=== PATIENT | female | born 1995 | race Two or more races ===

== ENCOUNTER → 2020-07-02 | Emergency (ER) | payer OTHER ==
[~2020-07-02] VITALS: Ht 167.6 cm; Wt 131.5 kg
[~2020-07-02] MED LIST: AMOX250; IBU600 MG
== END | disposition left against medical advice (07) ==
LOC: ER 14:02
DX: J02.9 Acute pharyngitis, unspecified (principal); Z03.818 Encounter for observation for suspected exposure to other biological agents ruled out

== ENCOUNTER → 2025-09-07 | Emergency (ER) | payer OTHER ==
[~2025-09-07] VITALS: Ht 170.2 cm; Wt 140.6 kg
[~2025-09-07] MED LIST changes: +ACETAMINOPHEN 500 MG GEL..CAP PO ONE; +CEPHALEXIN500 M1 PO; +RINGERS SOLUTION,LACTATED 1,000 ML IV ONE
[2025-09-07 18:36] VITALS: BP 120/60; O2SAT 98
[2025-09-07 20:03] LABS: BASO % 0.3 % (0.1-1.2); EOS # 0.16 (0.04-0.54); EOS % 1.2 % (0.7-7.0); LYMPH # 3.35 (1.18-3.74); LYMPH % 24.7 % (19.3-53.1); MEAN PLATELET VOLUME 9.90 fl (9.4-12.4); MONO # 0.95 (0.24-0.82); MONO % 7.0 % (4.7-12.5); NEUT # 9.01 (1.56-6.13); NEUT % 66.5 % (34.0-71.1); RED CELL DISTRIBUTION WIDTH 15.6 % (11.6-14.4)
[2025-09-07 20:44] LABS: URINE APPEARANCE Clear; URINE BILIRRUBIN Negative (NEGATIVE); URINE BLOOD Negative; URINE COLOR Dark Yellow; URINE GLUCOSE Negative (NEGATIVE); URINE KETONE Trace (NEGATIVE); URINE LEUKOCYTE Moderate; URINE NITRATE Negative; URINE PROTEIN Trace (NEGATIVE); URINE UROBILINOGEN 1.0 E.U./dl
[2025-09-07 20:44] LABS: ALT/SGPT 36.0 U/L (12-78); AST/SGOT 18.0 U/L (15-37); BILIRUBIN TOTAL 0.52 mg/dL (0.3-1.2); BUN CREA RATIO 11.0 (7.0-25.0); CREATININE SERUM 0.71 mg/dL (0.55-1.02); GFR 96.66; GLOBULINA 4.7 G/DL (2.4-3.5); GLUCOSE FASTING 90.0 mg/dL (65-100); OSMOLALITY SERUM 279.0 MOSM/KG (275-295)
[2025-09-07 20:48] LABS: URINE BACTERIA 1909.2 uL (0.0-1933); URINE EPITHELIAL CELLS 34.0 uL (0.0-38.8); URINE RBC 6.2 uL (0.0-20.8); URINE WBC 579.3 uL (0.0-23.2)
[2025-09-07 20:51] LABS: HCG QUANTITATIVE 1182.0 mUI/mL (1-3)
[2025-09-07 21:00] LABS: URINE CAST 0.56 uL (0.0-1.40)
== END | disposition home or self-care (01) ==
LOC: ER 18:13
PROVIDERS: Student in an Organized Health Care Education/Training Program
DX: O23.30 Infections of other parts of urinary tract in pregnancy, unspecified trimester (principal); Z3A.01 Less than 8 weeks gestation of pregnancy; R07.9 Chest pain, unspecified; N39.0 Urinary tract infection, site not specified